=== PATIENT | male | born 1975 | race American Indian/Alaskan Native ===

== ENCOUNTER 2021-08-12 09:16 | Day surgery (SDC) | payer OTHER ==
[~2021-08-12 09:16] MED LIST: CELECOXIB 200 MG CAP PO NR; GABAPENTIN 300 MG CAP PO NR; LACTATED RINGERS 1,000 ML IV SCH; MIDAZOLAM 2 MG/2 ML INJ IV NR; SCOPOLAMINE TRANSDERMAL PATCH 72 HR TD NR
[2021-08-12] MEDS ORDERED: HEPARIN 5,000 UNIT/1 ML VIAL SUB-Q NR (09:30)
[2021-08-12] MEDS ORDERED: ceFAZolin/STERILE WATER 2 GM/20 ML SYRINGE IV NR (10:00)
--- NOTE | 2021-08-12 10:19 | Anesthesia Consultation ---
Anesthesia Consult and Med Hx Date of service: 08/12/21 - Airway Anesthetic Teeth Evaluation: Edentulous ROM Head & Neck: Adequate (adequate extension however patient has pain with B/l UE neuropathy with further extension of the neck) Mental/Hyoid Distance: Adequate Mallampati Class: Class III Intubation Access Assessment: Possibly Difficult - Pre-Operative Health Status ASA Pre-Surgery Classification: ASA2 Proposed Anesthetic Plan: General - Pulmonary Hx Smoking: Yes (1.5 PPD + THC multiple times daily) Hx Respiratory Symptoms: No Hx Sleep Apnea: No - Cardiovascular System Hx Hypertension: No - Central Nervous System CVA: No Hx Back Pain: Yes - Endocrine Hx Renal Disease: No Hx Liver Disease: No Hx Insulin Dependent Diabetes: No Hx Non-Insulin Dependent Diabetes: No Hx Thyroid Disease: No - Other Systems Hx Substance Use: Yes (THC multiple times daily) Hx Obesity: No - Additional Comments Anesthesia Medical History Comments: No prior GA. No FHx anesthetic complications.
--- NOTE | 2021-08-12 10:19 | Anesthesia Day of Surgery ---
Anesthesia Day of Surgery - Day of Surgery Patient Examined: Yes Patient H&P Reviewed: Yes Patient is NPO: Yes
[2021-08-12] MEDS ORDERED: ONDANSETRON 4 MG/2 ML INJ IV PRN (10:30)
[2021-08-12] MEDS ORDERED: HYDROcodone/ACETAMINOPHEN 5-325 MG TAB PO PRN (11:00)
[2021-08-12] MEDS ORDERED: HYDROmorphone 1 MG/1 ML INJ IV PRN (11:00)
[2021-08-12] MEDS ORDERED: LIDOCAINE 1%/EPINEPHRINE 1:100,000 VIAL (20 ML) INFILTRATI ONE ×3 (11:36→12:30)
[2021-08-12] MEDS ORDERED: propofoL 200 MG/20 ML VIAL IV ONE (11:37)
[2021-08-12] MEDS ORDERED: ROCURONIUM 50 MG/5 ML INJ IV ONE (11:37)
[2021-08-12] MEDS ORDERED: LIDOCAINE MPF (2%) 20 MG/1 ML VIAL 5 ML ONE (11:37)
[2021-08-12] MEDS ORDERED: HYDROmorphone 1 MG/1 ML INJ ONE (11:37)
[2021-08-12] MEDS ORDERED: SODIUM CHLORIDE 0.9% IRR 1,000 ML BOTTLE IR ONE (12:30)
[2021-08-12] MEDS ORDERED: BUPIVACAINE/PF (0.5%) 5 MG/1 ML 30 ML VIAL INFILTRATI ONE ×2 (12:57→13:01)
[2021-08-12] MEDS ORDERED: GLYCOPYRROLATE 0.4 MG/2 ML INJ ONE (13:02)
[2021-08-12] MEDS ORDERED: NEOSTIGMINE 10MG/10 ML INJ MDV ONE (13:02)
[2021-08-12] MEDS ORDERED: ONDANSETRON 4 MG/2 ML INJ ONE (13:13)
--- NOTE | 2021-08-12 13:44 | Procedure Note ---
Date of procedure: 08/12/21 Pre-op diagnosis: LIH Post-op diagnosis: same (Indirect) Procedure: Open repair of LIH Description of procedure: Pt was placed supine on the OR table. General anesthesia was administered. Lower abdomen was prepped and draped. Skin and SQ tissue at the proposed incision was infiltrated with 8 ml of 1% Lidocaine with epinephrine. A left suprapubic incision was made. SQ tissue was transected with the Bovie. External oblique aponeurosis was incised over the inguinal canal. A [place] drain was passed about the cord. There was no evidence of a direct inguinal hernia. Cord was skeletonized and an indirect inguinal hernia sac identified. The sac was dissected free of the cord structures. The sac was opened and did not contain any incarcerated tissue. The sac was ligated high with a purse string suture of 2-0 silk. External oblique aponeurosis was approximated with a running suture of 3-0 Vicryl. Skin was approximated with a running subcuticular suture of 4-0 Monocryl. Skin glue was applied. Pt tolerated the procedure well and was taken to PACU in stable condition. Anesthesia: other (LMA) Surgeon: YEISON OBRIEN Estimated blood loss: minimal Pathology: none Condition: stable Disposition: PACU
[2021-08-12] MEDS ORDERED: oxyCODONE /ACETAMINOPHEN 5-325MG TAB PO PRN (14:30)
[2021-08-12 14:45] VITALS: BP 106/67
--- NOTE | 2021-08-12 14:52 | Post Anesthesia Evaluation ---
- Post Anesthesia Evaluation Patient Participated: Yes Airway Patent: Yes Stable Respiratory Function: Yes Nausea/Vomiting: No Temp > 96.8F: Yes Pain Manageable: Yes Adequeate Hydration: Yes Anesthesia Complications: No
== END 2021-08-12 15:05 | disposition home or self-care (01) ==
LOC: OR 09:16
PROVIDERS: ATTEND Surgery
DX: K40.90 Unilateral inguinal hernia, without obstruction or gangrene, not specified as recurrent (principal); R10.9 Unspecified abdominal pain; M19.90 Unspecified osteoarthritis, unspecified site; F17.210 Nicotine dependence, cigarettes, uncomplicated; Z79.899 Other long term (current) drug therapy
CPT/HCPCS: 49505; J0690; J1170; J1644; J2250; J2405; J2704; J2710; J7120